=== PATIENT | female | born 1975 | race Caucasian/White ===

== ENCOUNTER → 2021-08-10 | Outpatient (CLI) | payer SELFPAY ==
--- NOTE | 2021-08-10 16:12 | Diagnostic Imaging Report ---
INDICATION: Mixed hyperlipidemia. Please see separate coronary calcium scoring report. TECHNIQUE: All CT scans use one or more of the following dose optimizing techniques: automated exposure control, MA and/or KvP adjustment based on patient size and exam type or iterative reconstruction. FINDINGS: The portions of the lungs visualized, both on the right and left, are clear. There are no nodules or infiltrates. No bronchiectasis. No pleural effusion or pericardial effusion. No mediastinal or hilar adenopathy of pathologic size. No bony lesions are seen within the ribs or thoracic spine where visualized. IMPRESSION: Normal-appearing lungs. Dictated by: Dictated on workstation # [id number]
== END ==
LOC: RAD FS 15:22
PROVIDERS: ATTEND Family Medicine
DX: E78.2 Mixed hyperlipidemia (principal)
CPT/HCPCS: 75571